=== PATIENT | male | born 1975 | race Caucasian/White ===

== ENCOUNTER 2017-07-27 20:45 | Emergency (ER) | payer SELFPAY ==
--- NOTE | 2017-07-27 21:44 | ED Physician Documentation ---
Syncope/Near Syncope - HISTORIAN Historian: patient, spouse - HPI Chief Complaint: Altered Mental Status Additional Information: pt driving car approx 2014 had feeling might pass out began driving then had another approx 2044-feels fine now has seasonal allergies w nasal and occ chest congestion-remodels old ambika has allergies takes claritin daily maybe has LOTUS not tested yet --report from . exam now perfectly normal orthostatics ekg ua completely normal detailed exam w/ hx unremarkable Witnessed: Yes (-no color chg or mentation-did have sl tremor hands) Position at Time of Episode: sitting Symptoms Prior to Episode: none (felt like sl hard to breathe) Character of Events(s): denies: lost consciousness, became unresponsive, collapsed, felt faint Symptoms after Event: denies: confused after event, breathing shallow, breathing stopped Location of Injury: none Associated Symptoms: feels back to normal. denies: chest pain, shortness of breath, abdominal pain, nausea, vomiting, light-headedness, dizziness, headache - ROS CONST: other (freq rhinorrhea and blows nose from allergies). denies: recent illness, fever, cough EYES/ENT: denies: problems with vision, sore throat GI/: denies: diarrhea, black stools, problems urinating MS/SKIN/LYMPH: denies: joint pain, leg swelling, rash, swollen glands, ankle swelling NEURO/PSYCH: anxiety (slight-better now--pt convinced due to allergies). denies : confusion - PAST HX Cardiac Disease: none PE Risk Factors: none Other History: aneurysm Surgeries/Procedures: none Allergies/Adverse Reactions: Allergies Allergy/AdvReac Type Severity Reaction Status Date / Time Penicillins Allergy Intermediate Verified 07/27/17 21:28 Home Medications: Ambulatory Orders Medication Instructions Recorded NK [NK] 07/27/17 - SOCIAL HX Smoking History: greater than 1 pack/day Alcohol Use: other (1 gl wine per day) Drug Use: none - FAMILY HX Family History: denies: sudden cardiac ([id number] m-l-74 occ card arrythmia) - REVIEWED ASSESSMENTS Nursing Assessment Reviewed: Yes Vitals Reviewed: Yes ED Results Lab/Radiology - Orders Orders: ED Orders Category Date Time Status UA [URINALYSIS] Routine Lab 07/27/17 Ordered EKG WITH COMPARISON Stat Ther 06/03/18 Ordered Syncope Physical Exam - Physical Exam General Appearance: no acute distress. No: anxious, lethargic, hyperventilating EENT: nml eye inspection Neck/Back: neck supple, non-tender, no carotid bruit Respiratory: no resp distress, chest non-tender, breath sounds normal CVS: reg rate & rhythm, heart sounds normal Abdomen: non-tender, no distention Skin: warm/dry, normal color. No: cyanosis, diaphoresis, jaundice, mottled Extremities: non-tender, normal range of motion, no evidence of injury, no edema , other (no pronator drift coord good heel to knee to toe good bilat) - Neuro/Psych Higher Functions: alert, oriented x3, no evidence of acute CVA, mood/affect nml Cerebellar: nml as tested. denies: abnml Romberg test, abnml [id number] , abnml gait Sensorimotor: nml motor response, nml sensory response, nml reflexes, nml gait. denies: motor deficit, abnml gait, sensory deficit Discharge Clincal Impression: seasonal allergic responses Referrals: Helio Hopson MD [Primary Care Provider] - 2 Days Comments: learn to take pulse---get bp machine for home usage f/u w/pcp Condition: Good Disposition: 01 HOME, SELF-CARE Decision to Admit: NO Decision Time: 22:03
[2017-07-27 22:02] VITALS: BP 118/61
[2017-07-28 06:22] LABS: APPEARANCE,URINE CLOUDY (CLEAR); COLOR,URINE YELLOW (YELLOW); OCCULT BLOOD,URINE NEGATIVE (NEGATIVE); PH URINE 7.5 (5.0 - 8.0); UROBILINOGEN URINE 0.2 Eu (0.2-1.0)
== END 2017-07-27 22:14 | disposition home or self-care (01) ==
LOC: ED 20:45
DX: J30.2 Other seasonal allergic rhinitis (principal); T78.40XA Allergy, unspecified, initial encounter; X58.XXXA Exposure to other specified factors, initial encounter; Y93.9 Activity, unspecified; Y92.9 Unspecified place or not applicable; Y99.9 Unspecified external cause status
CPT/HCPCS: 81002; 99284; S1016